=== PATIENT | female | born 1995 | race Caucasian/White ===

== ENCOUNTER 2016-12-03 10:54 | Emergency (ER) | payer OTHER ==
[2016-12-03] MEDS ORDERED: HYDROCODONE/ACETAMINOPHEN 5/325MG TABLET ONE ×2 (12:18→12:48)
[2016-12-03] MEDS ORDERED: DIPHENHYDRAMINE HCL 50 MG CAPSULE ONE (12:48)
[2016-12-03] MEDS ORDERED: ONDANSETRON 4 MG ODT TAB ONE (12:48)
[2016-12-03] MEDS ORDERED: IBUPROFEN 600 MG TABLET ONE (12:49)
[2016-12-03 14:11] LABS: HCG,QUALITATIVE URINE NEGATIVE
[2016-12-03] MEDS ORDERED: DOXYCYCLINE HYCLATE 100 MG TABLET ONE (14:27)
[2016-12-03] MEDS ORDERED: CEPHALEXIN 500 MG CAPSULE ONE (14:27)
== END 2016-12-03 14:49 | disposition home or self-care (01) ==
LOC: ED 10:54
DX: L02.01 Cutaneous abscess of face (principal)
CPT/HCPCS: 81025; 99283 ×2; 10060 ×2; A9270 ×7